=== PATIENT | female | born 1970 | race African-American/Black ===

== ENCOUNTER 2021-07-23 17:13 | Emergency (ER) | payer BC, OTHER, MEDICAID ==
[~2021-07-23] VITALS: Ht 170.2 cm; Wt 83.5 kg
[~2021-07-23 17:13] MED LIST: FLEXERIL PO; HYDROCODON-ACE1 EAC7 PO; HYDROCORTISONE3011 TP; IBUPROFEN 800800 M1 PO; MACROBID 100 M100 M1 PO; MEDROLDOSEPACK PO; NAPROSYN500 MG PO; NOHOMEMEDICATIONS; NORCO 5-325 TA1 EACH PO; PERCOCET 5-3251 EACH PO; ROBAXIN500 MG PO; ULTRAM 50MG TAB50 MG PO
[2021-07-23] MEDS ORDERED: MEDROLDOSEPACK PO (18:07)
[2021-07-23] MEDS ORDERED: ZANAFLEX4 MG PO (18:07)
[2021-07-23 18:27] VITALS: BP 154/88
== END 2021-07-23 18:28 | disposition home or self-care (01) ==
LOC: M.ERS 17:13
DX: S39.012A Strain of muscle, fascia and tendon of lower back, initial encounter (principal); S76.311A Strain of muscle, fascia and tendon of the posterior muscle group at thigh level, right thigh, initial encounter; M25.571 Pain in right ankle and joints of right foot; Z98.890 Other specified postprocedural states; Z91.041 Radiographic dye allergy status; W22.8XXA Striking against or struck by other objects, initial encounter; Y93.89 Activity, other specified; Y92.89 Other specified places as the place of occurrence of the external cause; Y99.8 Other external cause status

== ENCOUNTER 2021-07-26 21:14 | Emergency (ER) | payer BC, OTHER, MEDICAID ==
[~2021-07-26] VITALS: Ht 170.2 cm; Wt 85.3 kg
[~2021-07-26 21:14] MED LIST changes: +ZANAFLEX4 MG PO
[2021-07-26] MEDS ORDERED: DIAZEPAM 5 MG5 MG PO (23:11)
[2021-07-26] MEDS ORDERED: TORADOL 10 MG T10 MG PO (23:11)
[2021-07-26] MEDS ORDERED: HYDROCODON-ACE1 EAC7 PO (23:11)
[2021-07-26 23:26] VITALS: BP 132/74
== END 2021-07-26 23:26 | disposition home or self-care (01) ==
LOC: M.ERS 21:14
DX: S39.012D Strain of muscle, fascia and tendon of lower back, subsequent encounter (principal); Z91.041 Radiographic dye allergy status; W22.8XXD Striking against or struck by other objects, subsequent encounter

== ENCOUNTER 2021-10-16 13:45 | Emergency (ER) | payer OTHER ==
[~2021-10-16] VITALS: Ht 170.2 cm; Wt 87.1 kg
[~2021-10-16 13:45] MED LIST changes: +DIAZEPAM 5 MG5 MG PO; +TORADOL 10 MG T10 MG PO
[2021-10-16 15:18] LABS: ABSOLUTE LYMPHOCYTES 1.3 thou/uL (0.8-5.3); ABSOLUTE MONOCYTES 0.4 thou/uL (0.0-1.2); ABSOLUTE NEUTROPHILS 3.7 thou/uL (1.6-8.1); BASOPHILS 0.9 %; EOSINOPHILS 0.4 %; HEMATOCRIT 38.8 % (37.0-47.0); HEMOGLOBIN 12.6 gm/dL (12.0-15.0); LYMPHOCYTES 23.4 %; MCH 26.4 pg (26.0-34.0); MCHC 32.4 g/dL (28.0-37.0); MCV 81.2 fL (80.0-100.0); MONOCYTES 7.3 %; MPV 7.1 fl. (7.2-11.1); NUCLEATED RBCS 0 /100WBC; PLATELET COUNT* 381 thou/uL (150-400); RBC 4.78 mil/uL (4.20-5.00); RDW-CV 15.8 % (10.5-14.5); WBC 5.4 thou/uL (4.0-11.0)
[2021-10-16 15:25] LABS: CALCIUM 8.2 mg/dL (8.5-10.1); CREATININE 0.8 mg/dL (0.6-1.3)
[2021-10-16 15:29] LABS: ALBUMIN 3.5 g/dL (3.4-5.0); TOTAL BILIRUBIN 0.2 mg/dL (<0.1-1.0)
[2021-10-16 15:36] LABS: INFLUENZA A ANTIGEN Negative (Negative); INFLUENZA B ANTIGEN Negative (Negative)
[2021-10-16 16:06] LABS: URINE BILIRUBIN NEGATIVE (Negative); URINE BLOOD 1+ (Negative); URINE CLARITY CLEAR; URINE COLOR YELLOW; URINE GLUCOSE-RANDOM NEGATIVE (Negative); URINE KETONES NEGATIVE (Negative); URINE LEUKOCYTES 3+ (Negative); URINE NITRITE POSITIVE (Negative); URINE PROTEIN NEGATIVE (Negative); URINE UROBILINOGEN 0.2 E.U./dl (0.2-1.0)
[2021-10-16] MEDS ORDERED: CEPHALEXIN500 MG PO (16:20)
[2021-10-16] MEDS ORDERED: FLEXERIL PO (16:20)
[2021-10-16 16:28] VITALS: BP 134/70
[2021-10-16 16:41] LABS: SQUAMOUS 4-10 Moderate /LPF (0-3); URINE WBC >25 Many /HPF (0-5)
[2021-10-16 16:42] LABS: CASTS None Seen /LPF (None Seen); CRYSTALS None Seen /LPF (None Seen); URINE RBC 3-10 Few /HPF (0-2)
== END 2021-10-16 16:28 | disposition home or self-care (01) ==
LOC: M.ERS 13:45
PROVIDERS: Physician Assistant
DX: N39.0 Urinary tract infection, site not specified (principal); Z20.822 Contact with and (suspected) exposure to COVID-19; R11.2 Nausea with vomiting, unspecified; R30.0 Dysuria; R35.0 Frequency of micturition; R10.31 Right lower quadrant pain; Z98.890 Other specified postprocedural states; Z79.899 Other long term (current) drug therapy; Z91.041 Radiographic dye allergy status